=== PATIENT | female | born 1955 | race African-American/Black ===

== ENCOUNTER 2017-06-28 13:22 | Inpatient (IN) ==
[2017-06-28] MEDS ORDERED: ONDANSETRON 4 MG/2 ML VIAL IV STA (14:14)
[2017-06-28] MEDS ORDERED: HYDROmorphone 2 MG/1 ML VIAL IV STA ×2 (14:14→16:15)
[2017-06-28] MEDS ORDERED: ONDANSETRON 4 MG/2 ML VIAL ONE (14:17)
[2017-06-28] MEDS ORDERED: HYDROmorphone 2 MG/1 ML VIAL ONE (14:18)
[2017-06-28 14:33] LABS: Basophils % 0.3 % (0.0-0.8); Eosinophils # 0.1 10*3/uL (0.0-0.87); Eosinophils % 0.4 % (0.00-10.9); Hematocrit 37.9 VOL% (35.7-47.0); Hemoglobin 11.8 GM/DL (12.0-16.0); Immature Granulocytes % 0.3 %; Immature Granulocytes Absolute 0.04 #; Lymphocytes # 1.1 10*3/uL (1.4-4.0); Mean Corpuscular HGB Conc 31.1 GM/DL (32-36); Mean Corpuscular Hemoglobin 24 PG (27-34); Mean Corpuscular Volume 77.8 FL (87-102); Monocytes # 0.6 10*3/uL (0.11-0.8); Monocytes % 5.2 % (1.7-12.7); Neutrophils # 10.3 10*3/uL (1.4-7.4); Neutrophils % 84.8 % (38.7-73.9); Platelet Count 258 T/CUMM (130-400); Red Blood Count 4.87 MC/CUMM (3.8-5.5); Red Cell Distribution Width 17.2 % (9.3-17.3); White Blood Count 12.1 T/CUMM (4-12)
[2017-06-28 14:43] LABS: INR 1.1; PT Patient Result 11.4 SECS; Partial Thromboplastin Time 26.5 SECS (0-40)
[2017-06-28 14:51] LABS: Calcium 8.9 MG/DL (8.5-10.1); Osmolality,Calculated 280.5 MOS/KG (273-304)
[2017-06-28] MEDS ORDERED: ONDANSETRON 4 MG/2 ML VIAL IV PRN ×2 (17:06→18:03)
[2017-06-28] MEDS ORDERED: TEMAZEPAM 15 MG CAPSULE PO PRN (17:06)
[2017-06-28] MEDS ORDERED: SODIUM CHLORIDE 0.9% 1,000 ML IV SCH ×2 (17:30→18:03)
[2017-06-28] MEDS ORDERED: HYDROmorphone 2 MG/1 ML VIAL IV PRN (18:03)
[2017-06-28] MEDS ORDERED: MAGNESIUM HYDROXIDE SUSP 30 ML UDCUP PO PRN (18:03)
[2017-06-28] MEDS ORDERED: INFLUENZA VIRUS VACCINE 0.5 ML SYRINGE IM ONE (18:16)
[2017-06-28 19:44] LABS: Ferritin 14.5 ng/ml (8-252)
[2017-06-28] MEDS ORDERED: ZALEPLON 5 MG CAPSULE PO PRN (20:00)
[2017-06-28] MEDS: SODIUM CHLORIDE 0.45% 1,000 ML IV SCH (20:16)
[2017-06-28] MEDS: HYDROmorphone 2 MG/1 ML VIAL IV PRN (20:42)
[2017-06-28] MEDS: PROPAFENONE 150 MG TABLET PO SCH (20:46)
[2017-06-28] MEDS: ATORVASTATIN 10 MG TABLET PO SCH (20:46)
[2017-06-28] MEDS: RIVASTIGMINE 3 MG CAPSULE PO SCH (20:46)
[2017-06-28] MEDS: MEMANTINE 10 MG TABLET PO SCH (20:46)
[2017-06-29] MEDS: HYDROmorphone 2 MG/1 ML VIAL IV PRN (00:24)
[2017-06-29] MEDS ORDERED: diphenhydrAMINE CAP 25 MG CAPSULE PO PRN (01:37)
[2017-06-29] MEDS ORDERED: diphenhydrAMINE 50 MG/1 ML VIAL IV ONE (09:05)
[2017-06-29] MEDS ORDERED: MEPERIDINE 50 MG/1 ML VIAL ONE (09:20)
[2017-06-29] MEDS ORDERED: diphenhydrAMINE 50 MG/1 ML VIAL ONE (09:20)
[2017-06-29 09:56] LABS: Calcium 8.5 MG/DL (8.5-10.1); Osmolality,Calculated 283.3 MOS/KG (273-304)
[2017-06-29 09:59] LABS: Basophils % 0.3 % (0.0-0.8); Eosinophils # 0.1 10*3/uL (0.0-0.87); Eosinophils % 1.1 % (0.00-10.9); Hematocrit 34.6 VOL% (35.7-47.0); Hemoglobin 10.6 GM/DL (12.0-16.0); Immature Granulocytes % 0.4 %; Immature Granulocytes Absolute 0.03 #; Lymphocytes # 1.5 10*3/uL (1.4-4.0); Lymphocytes % 20.9 % (21.3-54.2); Mean Corpuscular HGB Conc 30.6 GM/DL (32-36); Mean Corpuscular Hemoglobin 25 PG (27-34); Mean Corpuscular Volume 80.3 FL (87-102); Mean Platelet Volume 9.3 FL (9.6-12.0); Monocytes # 0.8 10*3/uL (0.11-0.8); Monocytes % 10.2 % (1.7-12.7); Neutrophils % 67.1 % (38.7-73.9); Platelet Count 252 T/CUMM (130-400); Red Blood Count 4.31 MC/CUMM (3.8-5.5); Red Cell Distribution Width 17.2 % (9.3-17.3); White Blood Count 7.4 T/CUMM (4-12)
[2017-06-29] MEDS ORDERED: ceFAZolin 1,000 MG in SYRINGE 1 EACH IV ONE (10:00)
[2017-06-29] MEDS ORDERED: oxyCODONE/ACETAMINOPHEN 5-325 MG TABLET PO PRN ×2 (10:25→10:26)
[2017-06-29] MEDS ORDERED: MEPERIDINE 25 MG/1 ML VIAL IV PRN (10:27)
[2017-06-29] MEDS ORDERED: DIAZEPAM 5 MG TABLET PO ONE (10:28)
[2017-06-29] MEDS: SODIUM CHLORIDE 0.45% 1,000 ML IV SCH ×3 (10:28→20:15)
[2017-06-29] MEDS ORDERED: FAMOTIDINE 20 MG TABLET PO ONE (10:28)
[2017-06-29] MEDS: CHOLECALCIFEROL 1,000 UNIT TABLET PO SCH (10:29)
[2017-06-29] MEDS: SERTRALINE 100 MG TABLET PO SCH (10:29)
[2017-06-29] MEDS: PROPAFENONE 150 MG TABLET PO SCH ×2 (10:29→20:21)
[2017-06-29] MEDS: RIVASTIGMINE 3 MG CAPSULE PO SCH ×2 (10:29→20:21)
[2017-06-29] MEDS: MEMANTINE 10 MG TABLET PO SCH ×2 (10:29→20:22)
[2017-06-29] MEDS ORDERED: FAMOTIDINE 20 MG TABLET ONE (10:32)
[2017-06-29] MEDS ORDERED: DIAZEPAM 5 MG TABLET ONE (10:33)
[2017-06-29 11:26] LABS: Magnesium 2.2 MG/DL (1.8-2.4)
[2017-06-29] MEDS: LACTATED RINGERS 1,000 ML IV SCH ×2 (12:00→14:00)
[2017-06-29] MEDS ORDERED: PROPOFOL 200 MG/20 ML VIAL IV ONE (13:40)
[2017-06-29] MEDS ORDERED: SEVOFLURANE 1 UNIT/15 MINUTE INH ONE (13:40)
[2017-06-29] MEDS ORDERED: KETOROLAC 30 MG/1 ML VIAL ONE (13:41)
[2017-06-29] MEDS ORDERED: MIDAZOLAM 2 MG/2 ML VIAL ONE (13:41)
[2017-06-29] MEDS ORDERED: ONDANSETRON 4 MG/2 ML VIAL ONE ×2 (13:41→13:42)
[2017-06-29] MEDS ORDERED: fentaNYL 100 MCG/2 ML VIAL ONE (13:41)
[2017-06-29] MEDS ORDERED: MEPERIDINE 25 MG/1 ML VIAL ONE (13:41)
[2017-06-29] MEDS ORDERED: MORPHINE 10 MG/1 ML VIAL ONE (13:42)
[2017-06-29] MEDS ORDERED: ACETAMINOPHEN 1,000 MG/100 ML VIAL IV ONE (13:42)
[2017-06-29] MEDS ORDERED: ONDANSETRON 4 MG/2 ML VIAL IV PRN (13:44)
[2017-06-29] MEDS: MORPHINE 10 MG/1 ML VIAL IV PRN ×5 (13:45→14:20)
[2017-06-29] MEDS ORDERED: diphenhydrAMINE 50 MG/1 ML VIAL IV PRN (15:33)
[2017-06-29 15:51] LABS: Apearance,Urine CLEAR (Clear); Bacteria,Urine Occasional /HPF (Few); Bilirubin,Urine Negative (Negative); Blood, Urine Small mg/dL (Negative); Glucose,Urine (UA) Negative (Negative); Ketones,Urine Negative (Negative); Nitrite,Urine Positive (Negative); Protein,Urine Negative; RBC,Urine <1 /HPF (0-4); Urine Color Yellow (Yellow); Urine Specific Gravity 1.005 (1.001-1.035); Urine Urobilinogen < 2.0 EU/DL (0.2-1.0); WBC,Urine 5 /HPF (0-6)
[2017-06-29] MEDS: IRON (CARBONYL)/VIT C/B12/FA TABLET PO SCH (16:00)
[2017-06-29] MEDS: ceFAZolin 1,000 MG in SYRINGE 1 EACH IV SCH (17:45)
[2017-06-29] MEDS: oxyCODONE ER 10 MG TABLET PO PRN (17:50)
[2017-06-29] MEDS: MEPERIDINE 50 MG/1 ML VIAL IV PRN (20:17)
[2017-06-29] MEDS: ATORVASTATIN 10 MG TABLET PO SCH (20:21)
[2017-06-30] MEDS: ceFAZolin 1,000 MG in SYRINGE 1 EACH IV SCH ×2 (02:27→11:07)
[2017-06-30 04:58] LABS: Basophils % 0.1 % (0.0-0.8); Eosinophils # 0.1 10*3/uL (0.0-0.87); Eosinophils % 1.6 % (0.00-10.9); Hematocrit 30.6 VOL% (35.7-47.0); Hemoglobin 9.2 GM/DL (12.0-16.0); Immature Granulocytes % 0.3 %; Immature Granulocytes Absolute 0.02 #; Lymphocytes # 0.9 10*3/uL (1.4-4.0); Mean Corpuscular HGB Conc 30.1 GM/DL (32-36); Mean Corpuscular Hemoglobin 24 PG (27-34); Mean Corpuscular Volume 81.2 FL (87-102); Mean Platelet Volume 9.2 FL (9.6-12.0); Monocytes # 0.5 10*3/uL (0.11-0.8); Monocytes % 7.4 % (1.7-12.7); Neutrophils # 5.7 10*3/uL (1.4-7.4); Neutrophils % 78.6 % (38.7-73.9); Platelet Count 202 T/CUMM (130-400); Red Blood Count 3.77 MC/CUMM (3.8-5.5); Red Cell Distribution Width 17.1 % (9.3-17.3); White Blood Count 7.3 T/CUMM (4-12)
[2017-06-30 05:29] LABS: Calcium 8.1 MG/DL (8.5-10.1); Potassium 4.2 MMOL/L (3.5-5.1)
[2017-06-30] MEDS ORDERED: MAGNESIUM HYDROXIDE SUSP 30 ML UDCUP PO PRN (06:00)
[2017-06-30] MEDS: oxyCODONE ER 10 MG TABLET PO PRN (07:31)
[2017-06-30] MEDS ORDERED: FUROSEMIDE 20 MG TABLET PO PRN (07:32)
[2017-06-30] MEDS ORDERED: CHLORZOXAZONE 500 MG PO PRN (07:32)
[2017-06-30] MEDS: SERTRALINE 100 MG TABLET PO SCH (08:45)
[2017-06-30] MEDS: IRON (CARBONYL)/VIT C/B12/FA TABLET PO SCH (08:46)
[2017-06-30] MEDS: CHOLECALCIFEROL 1,000 UNIT TABLET PO SCH (08:46)
[2017-06-30] MEDS: RIVASTIGMINE 3 MG CAPSULE PO SCH ×2 (08:47→20:49)
[2017-06-30] MEDS: APIXABAN 5 MG TABLET PO SCH ×2 (08:47→20:49)
[2017-06-30] MEDS: MEMANTINE 10 MG TABLET PO SCH ×2 (08:48→20:49)
[2017-06-30] MEDS: PANTOPRAZOLE 40 MG TABLET PO SCH (08:48)
[2017-06-30] MEDS: SODIUM CHLORIDE 0.45% 1,000 ML IV SCH (09:23)
[2017-06-30] MEDS: cefTRIAXone 1,000 MG in SYRINGE 1 EACH IV SCH (11:00)
[2017-06-30] MEDS: MEPERIDINE 50 MG/1 ML VIAL IV PRN (12:27)
[2017-06-30] MEDS: PROPAFENONE 150 MG TABLET PO SCH ×2 (14:15→20:49)
[2017-06-30] MEDS ORDERED: ONDANSETRON 4 MG TABLET PO PRN (18:04)
[2017-06-30] MEDS: ATORVASTATIN 10 MG TABLET PO SCH (20:48)
[2017-07-01] MEDS ORDERED: AMIODARONE INJ 450 MG in DEXTROSE 5% 241 ML IV SCH (00:38)
[2017-07-01] MEDS ORDERED: AMIODARONE 150 MG/3 ML VIAL ONE (01:01)
[2017-07-01] MEDS: ALPRAZolam 0.25 MG TABLET PO PRN ×2 (01:16→12:18)
[2017-07-01 05:50] LABS: Basophils % 0.3 % (0.0-0.8); Eosinophils # 0.2 10*3/uL (0.0-0.87); Eosinophils % 2.5 % (0.00-10.9); Hematocrit 31.4 VOL% (35.7-47.0); Hemoglobin 9.3 GM/DL (12.0-16.0); Immature Granulocytes % 0.4 %; Immature Granulocytes Absolute 0.03 #; Lymphocytes # 1.8 10*3/uL (1.4-4.0); Lymphocytes % 24.9 % (21.3-54.2); Mean Corpuscular HGB Conc 29.6 GM/DL (32-36); Mean Corpuscular Hemoglobin 24 PG (27-34); Mean Corpuscular Volume 81.6 FL (87-102); Mean Platelet Volume 9.7 FL (9.6-12.0); Monocytes # 0.5 10*3/uL (0.11-0.8); Monocytes % 7.6 % (1.7-12.7); Neutrophils # 4.5 10*3/uL (1.4-7.4); Neutrophils % 64.3 % (38.7-73.9); Platelet Count 203 T/CUMM (130-400); Red Blood Count 3.85 MC/CUMM (3.8-5.5); White Blood Count 7.1 T/CUMM (4-12)
[2017-07-01 06:11] LABS: Calcium 8.4 MG/DL (8.5-10.1); Osmolality,Calculated 282.4 MOS/KG (273-304)
[2017-07-01] MEDS: RIVASTIGMINE 3 MG CAPSULE PO SCH (09:20)
[2017-07-01] MEDS: MEMANTINE 10 MG TABLET PO SCH (09:20)
[2017-07-01] MEDS: IRON (CARBONYL)/VIT C/B12/FA TABLET PO SCH (09:20)
[2017-07-01] MEDS: APIXABAN 5 MG TABLET PO SCH (09:20)
[2017-07-01] MEDS: SERTRALINE 100 MG TABLET PO SCH (09:20)
[2017-07-01] MEDS: PANTOPRAZOLE 40 MG TABLET PO SCH (09:20)
[2017-07-01] MEDS: CHOLECALCIFEROL 1,000 UNIT TABLET PO SCH (09:21)
[2017-07-01] MEDS ORDERED: PROPAFENONE 150 MG TABLET PO SCH (10:00)
[2017-07-01] MEDS ORDERED: ASCORBIC ACID 500 MG TABLET PO SCH (10:30)
[2017-07-01] MEDS: cefTRIAXone 1,000 MG in SYRINGE 1 EACH IV SCH (13:39)
[2017-07-01 15:28] VITALS: BP 150/78
== END 2017-07-01 15:05 | disposition home or self-care (01) | DRG 493 ==
LOC: N.ED 13:22 → N.EDINP 15:34 → SUATTDRO 15:34 → N.EDINP 17:50 → N.3E 17:58 → N.CC 07-01 01:04
PROVIDERS: ADMIT Orthopaedic Surgery; ATTEND Orthopaedic Surgery